=== PATIENT | female | born 1950 | race Caucasian/White ===

== ENCOUNTER → 2017-03-13 | Outpatient (CLI) | payer MEDICARE ==
[~2017-03-13] MED LIST: LEVOX PO
--- NOTE | 2017-03-13 10:47 | Diagnostic Imaging Report ---
INDICATION: Pain in right scapular region. Tingling in hands. Increasing in severity.. TECHNIQUE: AP, lateral, and odontoid views of the cervical spine.. CORRELATION STUDY: None. FINDINGS: There is some straightening of the normal cervical lordosis. There is 2 mm of anterolisthesis of C4 on C5. There is moderate asymmetric disc space narrowing at the C5-C6 and C6-C7 levels. Endplate osteophytes are noted, particularly anteriorly as well as at the anterior/inferior C3 and C4 levels. The vertebral soft tissues are unremarkable. The odontoid is largely obscured. The lateral masses of C1 and C2 are grossly unremarkable. There is some calcification of the soft tissues of the neck on the left which could be reflective of carotid artery calcification. Mildly prominent C7 cervical ribs, left slightly greater than right, are present. IMPRESSION: No definite evidence for acute bony abnormality. There is multilevel cervical spondylosis, most pronounced at the C5-C6 and C6-C7 levels, with endplate osteophyte formation. Given the reactive changes, this could predispose to potential foraminal or spinal canal narrowing. Given symptoms, if further assessment is desired, an MRI would be recommended. Dictated by: Dictated on workstation # [id number]
== END ==
LOC: RAD 06:56
PROVIDERS: ATTEND Family Medicine
DX: M54.2 Cervicalgia (principal); R29.898 Other symptoms and signs involving the musculoskeletal system; M47.892 Other spondylosis, cervical region
CPT/HCPCS: 72040

== ENCOUNTER 2018-10-21 06:40 | Outpatient (CLI) | payer MEDICARE ==
[~2018-10-21] VITALS: Ht 165.1 cm; Wt 81.6 kg
[2018-10-21] MEDS ORDERED: CETI10TA17 PO (13:52)
[2018-10-21] MEDS ORDERED: VITA-189 PO (13:52)
[2018-10-21] MEDS ORDERED: ATOR10TA66 PO (13:52)
[2018-10-21] MEDS ORDERED: OMEG100032 PO (13:52)
[2018-10-21] MEDS ORDERED: VIT1CAPS9 PO (13:52)
[2018-10-21] MEDS ORDERED: NAPR500T8 PO (13:52)
[2018-10-21] MEDS ORDERED: LEVO100T7 PO (13:52)
== END 2018-10-21 14:41 | disposition home or self-care (01) ==
LOC: PREOP 06:40
PROVIDERS: ATTEND Specialist
DX: Z01.818 Encounter for other preprocedural examination (principal)

== ENCOUNTER 2018-10-24 08:38 | Day surgery (SDC) | payer BC, MEDICARE ==
[~2018-10-24] VITALS: Ht 165.1 cm; Wt 81.6 kg
[~2018-10-24 08:38] MED LIST changes: +ATOR10TA66 PO; +CETI10TA17 PO; +LEVO100T7 PO; +NAPR500T8 PO; +OMEG100032 PO; +VIT1CAPS9 PO; +VITA-189 PO
--- OUTSIDE RECORDS SUMMARY | 2018-10-24 08:42 | XMS REPORT | Continuity of Care Document ---
Author Author [facility] Organization [facility] Address Unknown Phone Unavailable Allergies Active Description Code Type Severity Reaction Onset Reported/Identified Relationship to Patient Clinical Status Yes No Known Drug Allergies [id number] Drug Allergy Unknown N/A 07/11/2012 Yes erythromycin base [id number] Drug Allergy Unknown N/A 10/21/2018 Medications There is no data. Problems Date Dx Coded Attending Type Code Diagnosis Diagnosed By 02/14/2006 Ot 307.81 02/14/2006 Ot 346.90 02/14/2006 Ot V57.1 07/11/2012 Ot V76.51 SCREEN MAL NEOP-COLON 12/01/2014 RYLAN POE MD Ot V76.12 06/24/2015 RYLAN POE MD Ot 244.9 06/24/2015 JACKY LOUIS BREAD OVEN OPERATOR Ot 241.0 06/24/2015 RYLAN POE MD Ot V76.12 06/30/2015 JACKY LOUIS BREAD OVEN OPERATOR Ot 241.0 06/30/2015 JACKY LOUIS BREAD OVEN OPERATOR Ot 244.9 07/14/2015 JACKY LOUIS BREAD OVEN OPERATOR Ot 241.0 07/14/2015 JACKY LOUIS BREAD OVEN OPERATOR Ot 244.9 11/22/2015 ADRIANE ALY MD Ot S01.81XA LACERATION W/O FOREIGN BODY OF OTH PART 11/22/2015 ADRIANE ALY MD Ot W22.8XXA STRIKING AGAINST OR STRUCK BY OTHER OBJE 11/22/2015 ADRIANE ALY MD Ot Y92.[address] TO SINGLE-FAMILY (PRIVA 11/22/2015 ADRIANE ALY MD Ot Y99.8 OTHER EXTERNAL CAUSE STATUS 11/22/2015 ADRIANE ALY MD Ot Z23 ENCOUNTER FOR IMMUNIZATION 11/27/2015 RYLAN POE MD Ot 244.9 11/27/2015 JACKY LOUISP Ot 241.0 11/27/2015 MACARIO GARCÍA, RYLAN Sandy Ot V76.12 11/27/2015 JACKY LOUIS BREAD OVEN OPERATOR Ot 241.0 11/27/2015 JACKY LOUIS BREAD OVEN OPERATOR Ot 244.9 02/23/2016 RYLAN POE MD Ot 244.9 HYPOTHYROIDISM NOS 02/23/2016 JACKY LOUIS BREAD OVEN OPERATOR Ot 241.0 NONTOX UNINODULAR GOITER 02/23/2016 MACARIO GARCÍA, RYLAN A Ot V76.12 OTH SCREEN MAMMO-MALIGN NEOPLASM OF BETZY 02/23/2016 JACKY LOUIS BREAD OVEN OPERATOR Ot 241.0 NONTOX UNINODULAR GOITER 02/23/2016 JACKY LOUIS BREAD OVEN OPERATOR Ot 244.9 HYPOTHYROIDISM NOS 02/23/2016 LEYDA MANNING ACCOUNTING LECTURER Ot M25.561 PAIN IN RIGHT KNEE 02/23/2016 LEYDA MANNING ACCOUNTING LECTURER Ot M25.561 PAIN IN RIGHT KNEE 02/24/2016 LEYDA MANNING ACCOUNTING LECTURER Ot M25.561 PAIN IN RIGHT KNEE 03/06/2016 Ot V76.12 03/06/2016 Ot V72.84 EXAM PRE- OPERATIVE NOS 03/06/2016 MACARIO GARCÍA, RYLAN Sandy Ot 244.9 HYPOTHYROIDISM NOS 03/06/2016 JACKY LOUIS BREAD OVEN OPERATOR Ot 241.0 NONTOX UNINODULAR GOITER 03/06/2016 MACARIO GARCÍA, RYLAN A Ot V76.12 OTH SCREEN MAMMO-MALIGN NEOPLASM OF BETZY 03/06/2016 JACKY LOUIS BREAD OVEN OPERATOR Ot 241.0 NONTOX UNINODULAR GOITER 03/06/2016 JACKY LOUIS BREAD OVEN OPERATOR Ot 244.9 HYPOTHYROIDISM NOS 03/06/2016 LEYDA MANNING ACCOUNTING LECTURER Ot M25.561 PAIN IN RIGHT KNEE 03/09/2016 LEYDA MANNING ACCOUNTING LECTURER Ot Z12.31 ENCNTR SCREEN MAMMOGRAM FOR MALIGNANT NE 03/10/2016 LEYDA MANNING ACCOUNTING LECTURER Ot Z12.31 ENCNTR SCREEN MAMMOGRAM FOR MALIGNANT NE 03/14/2016 LEYDA MANNING ACCOUNTING LECTURER Ot Z12.31 ENCNTR SCREEN MAMMOGRAM FOR MALIGNANT NE 03/27/2016 LEYDA MANNING ACCOUNTING LECTURER Ot M25.561 PAIN IN RIGHT KNEE 03/31/2016 LEYDA MANNING ACCOUNTING LECTURER Ot Z12.31 ENCNTR SCREEN MAMMOGRAM FOR MALIGNANT NE 03/13/2017 Ot V76.12 OTH SCREEN MAMMO-MALIGN NEOPLASM OF BETZY 03/13/2017 Ot V72.84 EXAM PRE- OPERATIVE NOS 03/13/2017 MACARIO GARCÍA, RYLAN Sandy Ot V76.12 OTH SCREEN MAMMO-MALIGN NEOPLASM OF BETZY 03/13/2017 RYLAN POE MD Ot 244.9 HYPOTHYROIDISM NOS 03/13/2017 JACKY LOUIS BREAD OVEN OPERATOR Ot 241.0 NONTOX UNINODULAR GOITER 03/13/2017 RYLAN POE MD Ot V76.12 OTH SCREEN MAMMO-MALIGN NEOPLASM OF BETZY 03/13/2017 JACKY LOUIS BREAD OVEN OPERATOR Ot 241.0 NONTOX UNINODULAR GOITER 03/13/2017 JACKY LOUIS BREAD OVEN OPERATOR Ot 244.9 HYPOTHYROIDISM NOS 03/13/2017 LEYDA MANNING ACCOUNTING LECTURER Ot Z12.31 ENCNTR SCREEN MAMMOGRAM FOR MALIGNANT NE 03/13/2017 LEYDA MANNING ACCOUNTING LECTURER Ot M25.561 PAIN IN RIGHT KNEE 03/13/2017 Ot V76.12 OTH SCREEN MAMMO-MALIGN NEOPLASM OF BETZY 03/13/2017 Ot V72.84 EXAM PRE- OPERATIVE NOS 03/13/2017 RYLAN POE MD Ot V76.12 OTH SCREEN MAMMO-MALIGN NEOPLASM OF BETZY 03/15/2017 RYLAN POE MD Ot M47.892 OTHER SPONDYLOSIS, CERVICAL REGION 03/15/2017 RYLAN POE MD Ot M54.2 CERVICALGIA 03/15/2017 RYLAN POE MD Ot R29.898 OTH SYMPTOMS AND SIGNS INVOLVING THE MUS 03/28/2017 RYLAN POE MD Ot M47.892 OTHER SPONDYLOSIS, CERVICAL REGION 03/28/2017 RYLAN POE MD Ot M54.2 CERVICALGIA 03/28/2017 RYLAN POE MD Ot R29.898 OTH SYMPTOMS AND SIGNS INVOLVING THE MUS 08/03/2017 Ot V76.12 OTH SCREEN MAMMO-MALIGN NEOPLASM OF BETZY 08/03/2017 Ot V72.84 EXAM PRE- OPERATIVE NOS 08/03/2017 RYLAN POE MD Ot V76.12 OTH SCREEN MAMMO-MALIGN NEOPLASM OF BETZY 08/03/2017 MACARIO GARCÍA, RYLAN Sandy Ot 244.9 HYPOTHYROIDISM NOS 08/03/2017 JACKY LOUIS BREAD OVEN OPERATOR Ot 241.0 NONTOX UNINODULAR GOITER 08/03/2017 MACARIO GARCÍA, RYLAN Sandy Ot V76.12 OTH SCREEN MAMMO-MALIGN NEOPLASM OF BETZY 08/03/2017 JACKY LOUIS BREAD OVEN OPERATOR Ot 241.0 NONTOX UNINODULAR GOITER 08/03/2017 JACKY LOUIS BREAD OVEN OPERATOR Ot 244.9 HYPOTHYROIDISM NOS 08/03/2017 LEYDA MANNING ACCOUNTING LECTURER Ot Z12.31 ENCNTR SCREEN MAMMOGRAM FOR MALIGNANT NE 08/03/2017 LEYDA MANNING ACCOUNTING LECTURER Ot M25.561 PAIN IN RIGHT KNEE 08/03/2017 MACARIO GARCÍA, RYLAN Sandy Ot M47.892 OTHER SPONDYLOSIS, CERVICAL REGION 08/03/2017 RYLAN POE MD Ot M54.2 CERVICALGIA 08/03/2017 MACARIO GARCÍA, RYLAN Sandy Ot R29.898 OT SYMPTOMS AND SIGNS INVOLVING THE MUS 09/02/2017 ARLETH BEAL Ot E78.2 MIXED HYPERLIPIDEMIA 09/02/2017 ARLETH BEAL Ot 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 09/02/2017 ARLETH BEAL Ot R06.02 SHORTNESS OF BREATH 09/02/2017 ARLETH BEAL Ot Z83.3 FAMILY HISTORY OF DIABETES MELLITUS 09/23/2017 ARLETH BEAL Ot E78.2 MIXED HYPERLIPIDEMIA 09/23/2017 ARLETH BEAL Ot 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 09/23/2017 ARLETH BEAL Ot R06.02 SHORTNESS OF BREATH 09/23/2017 ARLETH BEAL Ot Z83.3 FAMILY HISTORY OF DIABETES MELLITUS 10/21/2018 FORREST UNGER MD Ot Z01.818 ENCOUNTER FOR OTHER PREPROCEDURAL EXAMIN 10/22/2018 FORREST UNGER MD Ot Z01.818 ENCOUNTER FOR OTHER PREPROCEDURAL EXAMIN 10/24/2018 RYLAN POE MD Ot 244.9 HYPOTHYROIDISM NOS 10/24/2018 JACKY LOUIS BREAD OVEN OPERATOR Ot 241.0 NONTOX UNINODULAR GOITER 10/24/2018 MACARIO GARCÍA, RYLAN Sandy Ot V76.12 OTH SCREEN MAMMO-MALIGN NEOPLASM OF BETZY 10/24/2018 JACKY LOUIS BREAD OVEN OPERATOR Ot 241.0 NONTOX UNINODULAR GOITER 10/24/2018 JACKY LOUIS BREAD OVEN OPERATOR Ot 244.9 HYPOTHYROIDISM NOS 10/24/2018 LEYDA MANNING ACCOUNTING LECTURER Ot Z12.31 ENCNTR SCREEN MAMMOGRAM FOR MALIGNANT NE 10/24/2018 LEYDA MANNING ACCOUNTING LECTURER Ot M25.561 PAIN IN RIGHT KNEE 10/24/2018 MACARIO GARCÍA, RYLAN Sandy Ot M47.892 OTHER SPONDYLOSIS, CERVICAL REGION 10/24/2018 MACARIO GARCÍA, RYLAN Sandy Ot M54.2 CERVICALGIA 10/24/2018 MACARIO GARCÍA, RYLAN Sandy Ot R29.898 OTH SYMPTOMS AND SIGNS INVOLVING THE MUS 10/24/2018 ARLETH BEAL Ot E78.2 MIXED HYPERLIPIDEMIA 10/24/2018 ARLETH BEAL Ot 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 Results There is no data. Encounters ACCT No. Visit Date/Time Discharge Status Pt. Type Provider Facility Loc./Unit Complaint [id number] 10/21/2018 06:40:00 10/21/2018 14:41:00 DIS Outpatient FORREST UNGER MD [facility] PREOP CATARACT LEFT EYE [id number] 08/09/2017 09:30:00 08/09/2017 23:59:59 CLS Outpatient ARLETH BEAL [facility] CARD I65.23 [id number] 03/13/2017 06:56:00 03/13/2017 23:59:59 CLS Outpatient RYLAN POE MD [facility] RAD NECK PAIN [id number] 03/08/2016 10:40:00 03/08/2016 23:59:59 CLS Outpatient LEYDA MANNING ACCOUNTING LECTURER [facility] RAD SCREENING [id number] 02/23/2016 12:32:00 02/23/2016 23:59:59 CLS Outpatient LEYDA MANNING ACCOUNTING LECTURER [facility] RAD RIGHT KNEE PAIN [id number] 11/22/2015 11:10:00 11/22/2015 13:23:00 DIS Emergency ADRIANE ALY MD [facility] ER HEAD LAC [id number] 06/24/2015 13:01:00 06/24/2015 23:59:59 CLS Outpatient JACKY LOUIS [facility] RAD HYPOTHYROIDISM [id number] 11/04/2014 15:26:00 11/04/2014 23:59:59 CLS Outpatient RYLAN POE MD [facility] RAD SCREENING [id number] 06/15/2014 10:53:00 06/15/2014 23:59:59 CLS Outpatient JACKY LOUIS [facility] CARD THYROID NODULES [id number] 05/05/2014 10:30:00 05/05/2014 23:59:59 CLS Outpatient RYLAN POE MD [facility] RAD HYPOTHYROIDISM [id number] 08/04/2013 15:13:00 08/04/2013 23:59:59 CLS Outpatient RYLAN POE MD [facility] RAD SCREENING [id number] 10/24/2018 08:38:00 ACT Outpatient FORREST UNGER MD [facility] SDC LEFT EYE CATARACT [id number] 10/21/2018 15:23:00 HALLIE Han MD [facility] RAD SCREENING [id number] 03/06/2016 13:49:00 Document Registration [id number] 07/11/2012 08:33:00 Document Registration [id number] 07/10/2012 07:17:00 Document Registration [id number] 05/08/2012 07:25:00 Document Registration [id number] 01/07/2009 10:18:00 Document Registration [id number] 01/29/2006 15:04:00 Document Registration [email or web address] 06/24/2015 13:01:28 ACT Document Registration 0000 04/23/2017 14:22:17 04/23/2017 23:59:59 [facility] Outpatient Rylan Poe
[2018-10-24] MEDS: TETRACAINE 0.5% OPHTH SOLN 4 ML BTL (SINGLE DOSE ONLY) OU PRN ×4 (08:56→09:11)
[2018-10-24] MEDS ORDERED: TIMOLOL MALEATE 0.5% 5 ML (TIMOPTIC) BTL OU PRN (09:00)
[2018-10-24] MEDS ORDERED: MOXIFLOXACIN OPHTH SOLN 5 MG/ML 0.3 ML SYRINGE OP ONE (09:00)
[2018-10-24] MEDS ORDERED: LIDOCAINE PF 1% 2 ML AMP IR PRN (09:00)
[2018-10-24] MEDS ORDERED: POVIDONE (BETADINE) OPHTH SOLN 5% 30 ML OP ONE (09:00)
[2018-10-24] MEDS: CYCLOPENTOLATE 1% (CYCLOGYL) 2 ML DROPS OP SCH ×3 (09:01→09:11)
[2018-10-24] MEDS: PHENYLEPHRINE 10% OPHTH (NEO-SYN) 5 ML BTL OU SCH ×3 (09:01→09:11)
[2018-10-24 09:09] VITALS: BP 135/65
--- NOTE | 2018-10-24 09:35 | Ophthalmologist Pre-Op Note ---
Pre-Operative Progress Note H&P Reviewed The H&P was reviewed, patient examined and no changes noted. Date H&P Reviewed: Oct 24, 2018 Time H&P Reviewed: 09:35 Pre-Op Dx Cataract, Left Eye FORREST UNGER MD Oct 24, 2018 09:35
[2018-10-24] MEDS ORDERED: MIDAZOLAM 2 MG/2 ML (VERSED) VIAL ONE (09:39)
--- NOTE | 2018-10-24 10:10 | Ophthalmology Operative Report ---
Cataract removal/placement IOL PREOPERATIVE DIAGNOSIS: Cataract Left Eye POSTOPERATIVE DIAGNOSIS: Cataract Left Eye PROCEDURE: Cataract removal and placement of posterior chamber implant, left eye SURGEON: Collin Unger ANESTHESIA: Topical with sedation COMPLICATIONS: None ESTIMATED BLOOD LOSS: Minimal DESCRIPTION OF PROCEDURE: After proper informed consent was obtained, the patient, a 68 female, was taken to the Operating Room and the left eye was anesthetized with tetracaine. The left eye was then prepped and draped in the usual manner. A wire lid speculum was placed. A paracentesis was made at the left hand position. Preservative free lidocaine was injected into the anterior chamber followed by viscoelastic. A clear corneal incision was made in the temporal position. A capsulorrhexis was preformed and the central nuclear and cortical material were removed. The posterior capsule was polished and an Kurt 18.0 AU00T0 was placed into the capsular bag. The residual viscoelastic was aspirated and balanced saline solution was injected into the anterior chamber. Moxifloxacin was injected into the anterior chamber. The wound was checked and found to be water tight. The patient tolerated the procedure well without complications. COLLIN UNGER MD Oct 24, 2018 10:10
[2018-10-24 10:20] VITALS: BP 120/70
[2018-10-24] MEDS ORDERED: acetaZOLAMIDE ER 500 MG CAP (DIAMOX SEQUELS) PO ONE (10:30)
--- NOTE | 2018-10-24 12:43 | Anesthesia-General Post-Op ---
MAC Patient Condition Mental Status/LOC: Same as Preop Cardiovascular: Satisfactory Nausea/Vomiting: Absent Respiratory: Satisfactory Pain: Controlled Complications: Absent Post Op Complications Complications None Follow Up Care/Instructions Patient Instructions None needed. Anesthesiology Discharge Order Discharge Order Patient is doing well, no complaints, stable vital signs, no apparent adverse anesthesia problems. No complications reported per nursing. FLORA HAHN CRNA Oct 24, 2018 12:43
== END 2018-10-24 10:20 | disposition home or self-care (01) ==
LOC: SDC 08:38
PROVIDERS: ATTEND Specialist
DX: H25.12 Age-related nuclear cataract, left eye (principal); E03.9 Hypothyroidism, unspecified; E78.00 Pure hypercholesterolemia, unspecified; Z79.899 Other long term (current) drug therapy

== ENCOUNTER 2018-11-04 06:21 | Outpatient (CLI) | payer BC, MEDICARE ==
[~2018-11-04] VITALS: Ht 165.1 cm; Wt 81.6 kg
== END 2018-11-04 15:11 | disposition home or self-care (01) ==
LOC: PREOP 06:21
PROVIDERS: ATTEND Specialist
DX: Z01.818 Encounter for other preprocedural examination (principal)

== ENCOUNTER 2018-11-07 07:48 | Day surgery (SDC) | payer BC, MEDICARE ==
[~2018-11-07] VITALS: Ht 165.1 cm; Wt 81.6 kg
[2018-11-07 07:52] VITALS: BP 127/64
--- OUTSIDE RECORDS SUMMARY | 2018-11-07 07:52 | XMS REPORT | Continuity of Care Document ---
Author Author [facility] Organization [facility] Address Unknown Phone Unavailable Allergies Active Description Code Type Severity Reaction Onset Reported/Identified Relationship to Patient Clinical Status Yes No Known Drug Allergies [id number] Drug Allergy Unknown N/A 07/11/2012 Yes erythromycin base [id number] Drug Allergy Unknown N/A 10/21/2018 Medications There is no data. Problems Date Dx Coded Attending Type Code Diagnosis Diagnosed By 02/14/2006 Ot 307.81 02/14/2006 Ot 346.90 02/14/2006 Ot V57.1 07/11/2012 Ot V76.51 SCREEN MAL NEOP-COLON 12/01/2014 RYLAN POE MD Ot V76.12 06/24/2015 RYLAN POE MD Ot 244.9 06/24/2015 JACKY LOUIS DIRECTOR MULTIMEDIA Ot 241.0 06/24/2015 RYLAN POE MD Ot V76.12 06/30/2015 JACKY LOUIS DIRECTOR MULTIMEDIA Ot 241.0 06/30/2015 JACKY LOUIS DIRECTOR MULTIMEDIA Ot 244.9 07/14/2015 JACKY LOUIS DIRECTOR MULTIMEDIA Ot 241.0 07/14/2015 JACKY LOUIS DIRECTOR MULTIMEDIA Ot 244.9 11/22/2015 ADRIANE ALY MD Ot [...] RYLAN Sandy Ot V76.12 11/27/2015 JACKY LOUIS DIRECTOR MULTIMEDIA Ot 241.0 11/27/2015 JACKY LOUIS DIRECTOR MULTIMEDIA Ot 244.9 02/23/2016 RYLAN POE MD Ot 244.9 HYPOTHYROIDISM NOS 02/23/2016 JACKY LOUIS DIRECTOR MULTIMEDIA Ot 241.0 NONTOX UNINODULAR GOITER 02/23/2016 MACARIO GARCÍA, RYLAN A Ot V76.12 OTH SCREEN MAMMO-MALIGN NEOPLASM OF BETZY 02/23/2016 JACKY LOUIS DIRECTOR MULTIMEDIA Ot 241.0 NONTOX UNINODULAR GOITER 02/23/2016 JACKY LOUIS DIRECTOR MULTIMEDIA Ot 244.9 HYPOTHYROIDISM NOS 02/23/2016 LEYDA MANNING DOCKING SAW OPERATOR Ot M25.561 PAIN IN RIGHT KNEE 02/23/2016 LEYDA MANNING DOCKING SAW OPERATOR Ot M25.561 PAIN IN RIGHT KNEE 02/24/2016 LEYDA MANNING DOCKING SAW OPERATOR Ot M25.561 PAIN IN RIGHT KNEE 03/06/2016 Ot V76.12 03/06/2016 Ot V72.84 EXAM PRE- OPERATIVE NOS 03/06/2016 MACARIO GARCÍA, RYLAN Sandy Ot 244.9 HYPOTHYROIDISM NOS 03/06/2016 JACKY LOUIS DIRECTOR MULTIMEDIA Ot 241.0 NONTOX UNINODULAR GOITER 03/06/2016 MACARIO GARCÍA, RYLAN A Ot V76.12 OTH SCREEN MAMMO-MALIGN NEOPLASM OF BETZY 03/06/2016 JACKY LOUIS DIRECTOR MULTIMEDIA Ot 241.0 NONTOX UNINODULAR GOITER 03/06/2016 JACKY LOUIS DIRECTOR MULTIMEDIA Ot 244.9 HYPOTHYROIDISM NOS 03/06/2016 LEYDA MANNING DOCKING SAW OPERATOR Ot M25.561 PAIN IN RIGHT KNEE 03/09/2016 LEYDA MANNING DOCKING SAW OPERATOR Ot Z12.31 ENCNTR SCREEN MAMMOGRAM FOR MALIGNANT NE 03/10/2016 LEYDA MANNING DOCKING SAW OPERATOR Ot Z12.31 ENCNTR SCREEN MAMMOGRAM FOR MALIGNANT NE 03/14/2016 LEYDA MANNING DOCKING SAW OPERATOR Ot Z12.31 ENCNTR SCREEN MAMMOGRAM FOR MALIGNANT NE 03/27/2016 LEYDA MANNING DOCKING SAW OPERATOR Ot M25.561 PAIN IN RIGHT KNEE 03/31/2016 LEYDA MANNING DOCKING SAW OPERATOR Ot Z12.31 ENCNTR SCREEN MAMMOGRAM FOR MALIGNANT NE 03/13/2017 Ot V76.12 OTH SCREEN MAMMO-MALIGN NEOPLASM OF BETZY 03/13/2017 Ot V72.84 EXAM PRE- OPERATIVE NOS 03/13/2017 MACARIO GARCÍA, RYLAN Sandy Ot V76.12 OTH SCREEN MAMMO-MALIGN NEOPLASM OF BETZY 03/13/2017 RYLAN POE MD Ot 244.9 HYPOTHYROIDISM NOS 03/13/2017 JACKY LOUIS DIRECTOR MULTIMEDIA Ot 241.0 NONTOX UNINODULAR GOITER 03/13/2017 RYLAN POE MD Ot V76.12 OTH SCREEN MAMMO-MALIGN NEOPLASM OF BETZY 03/13/2017 JACKY LOUIS DIRECTOR MULTIMEDIA Ot 241.0 NONTOX UNINODULAR GOITER 03/13/2017 JACKY LOUIS DIRECTOR MULTIMEDIA Ot 244.9 HYPOTHYROIDISM NOS 03/13/2017 LEYDA MANNING DOCKING SAW OPERATOR Ot Z12.31 ENCNTR SCREEN MAMMOGRAM FOR MALIGNANT NE 03/13/2017 LEYDA MANNING DOCKING SAW OPERATOR Ot M25.561 PAIN IN RIGHT KNEE 03/13/2017 [...] Ot 244.9 HYPOTHYROIDISM NOS 08/03/2017 JACKY LOUIS DIRECTOR MULTIMEDIA Ot 241.0 NONTOX UNINODULAR GOITER 08/03/2017 MACARIO GARCÍA, RYLAN Sandy Ot V76.12 OTH SCREEN MAMMO-MALIGN NEOPLASM OF BETZY 08/03/2017 JACKY LOUIS DIRECTOR MULTIMEDIA Ot 241.0 NONTOX UNINODULAR GOITER 08/03/2017 JACKY LOUIS DIRECTOR MULTIMEDIA Ot 244.9 HYPOTHYROIDISM NOS 08/03/2017 LEYDA MANNING DOCKING SAW OPERATOR Ot Z12.31 ENCNTR SCREEN MAMMOGRAM FOR MALIGNANT NE 08/03/2017 LEYDA MANNING DOCKING SAW OPERATOR Ot M25.561 PAIN IN RIGHT KNEE 08/03/2017 [...] Z01.818 ENCOUNTER FOR OTHER PREPROCEDURAL EXAMIN 10/24/2018 MACARIO MD, RYLAN A Ot 244.9 HYPOTHYROIDISM NOS 10/24/2018 JACKY LOUIS DIRECTOR MULTIMEDIA Ot 241.0 NONTOX UNINODULAR GOITER 10/24/2018 MACARIO GARCÍA, RYLAN Sandy Ot V76.12 OTH SCREEN MAMMO-MALIGN NEOPLASM OF BETZY 10/24/2018 JACKY LOUIS DIRECTOR MULTIMEDIA Ot 241.0 NONTOX UNINODULAR GOITER 10/24/2018 JACKY LOUIS DIRECTOR MULTIMEDIA Ot 244.9 HYPOTHYROIDISM NOS 10/24/2018 LEYDA MANNING DOCKING SAW OPERATOR Ot Z12.31 ENCNTR SCREEN MAMMOGRAM FOR MALIGNANT NE 10/24/2018 LEYDA MANNING DOCKING SAW OPERATOR Ot M25.561 PAIN IN RIGHT KNEE 10/24/2018 [...] Ot Z83.3 FAMILY HISTORY OF DIABETES MELLITUS 10/24/2018 FORREST UNGER MD Ot E03.9 HYPOTHYROIDISM, UNSPECIFIED 10/24/2018 FORREST UNGER MD Ot E78.00 PURE HYPERCHOLESTEROLEMIA, UNSPECIFIED 10/24/2018 FORREST UNGER MD Ot H25.12 AGE-RELATED NUCLEAR CATARACT, LEFT EYE 10/24/2018 FORREST UNGER MD Ot Z79.899 OTHER [facility] (CURRENT) DRUG THERAPY 10/29/2018 FORREST UNGER MD Ot E03.9 HYPOTHYROIDISM, UNSPECIFIED 10/29/2018 FORREST UNGER MD Ot E78.00 PURE HYPERCHOLESTEROLEMIA, UNSPECIFIED 10/29/2018 FORREST UNGER MD L Ot H25.12 AGE-RELATED NUCLEAR CATARACT, LEFT EYE 10/29/2018 FORREST UNGER MD Ot Z79.899 OTHER [facility] (CURRENT) DRUG THERAPY 10/29/2018 FORREST UNGER MD Ot E03.9 HYPOTHYROIDISM, UNSPECIFIED 10/29/2018 FORREST UNGER MD Ot E78.00 PURE HYPERCHOLESTEROLEMIA, UNSPECIFIED 10/29/2018 FORREST UNGER MD Ot H25.12 AGE-RELATED NUCLEAR CATARACT, LEFT EYE 10/29/2018 FORREST UNGER MD Ot Z79.899 OTHER SWIMMING POOL PLASTERER HELPER (CURRENT) DRUG THERAPY 11/05/2018 FORREST UNGER MD Ot Z01.818 ENCOUNTER FOR OTHER PREPROCEDURAL EXAMIN Procedures There is no data. Results There is no data. Encounters ACCT No. Visit Date/Time Discharge Status Pt. Type Provider Facility Loc./Unit Complaint [id number] 11/04/2018 06:21:00 11/04/2018 15:11:00 DIS Outpatient FORREST UNGER MD [facility] PREOP RIGHT CATARACT [id number] 10/24/2018 08:38:00 10/24/2018 10:20:00 DIS Outpatient FORREST UNGER MD [facility] SDC LEFT EYE CATARACT [id number] 10/21/2018 15:23:00 10/21/2018 23:59:59 CLS Preadmit HALLIE REESE MD [facility] RAD SCREENING [id number] 10/21/2018 06:40:00 10/21/2018 14:41:00 DIS Outpatient FORREST UNGER MD [facility] PREOP CATARACT LEFT EYE [id number] 08/09/2017 09:30:00 08/09/2017 23:59:59 CLS Outpatient ARLETH BEAL [facility] CARD I65.23 [id number] 03/13/2017 06:56:00 03/13/2017 23:59:59 CLS Outpatient RYLAN POE MD [facility] RAD NECK PAIN [id number] 03/08/2016 10:40:00 03/08/2016 23:59:59 CLS Outpatient LEYDA MANNING APRN [facility] RAD SCREENING [id number] 02/23/2016 12:32:00 02/23/2016 23:59:59 CLS Outpatient LEYDA MANNING APRN [facility] RAD RIGHT KNEE PAIN [id number] 11/22/2015 11:10:00 11/22/2015 13:23:00 DIS Emergency ADRIANE ALY MD [facility] ER HEAD LAC [id number] 06/24/2015 13:01:00 06/24/2015 23:59:59 CLS Outpatient JACKY LOUIS [facility] RAD HYPOTHYROIDISM [id number] 11/04/2014 15:26:00 11/04/2014 23:59:59 CLS Outpatient RYLAN POE MD [facility] RAD SCREENING [id number] 06/15/2014 10:53:00 06/15/2014 23:59:59 CLS Outpatient JACKY LOUIS [facility] CARD THYROID NODULES [id number] 05/05/2014 10:30:00 05/05/2014 23:59:59 CLS Outpatient RYLAN POE MD [facility] RAD HYPOTHYROIDISM [id number] 08/04/2013 15:13:00 08/04/2013 23:59:59 CLS Outpatient RYLAN POE MD [facility] RAD SCREENING [id number] 11/07/2018 07:48:00 ACT Outpatient FORREST UNGER MD [facility] SDC RIGHT CATARACT [id number] 03/06/2016 13:49:00 Document Registration [id number] 07/11/2012 08:33:00 Document Registration [id number] 07/10/2012 07:17:00 Document Registration [id number] 05/08/2012 07:25:00 Document Registration [id number] 01/07/2009 10:18:00 Document Registration [id number] 01/29/2006 15:04:00 Document Registration [email or web address] 06/24/2015 13:01:28 ACT Document Registration 0000 04/23/2017 14:22:17 04/23/2017 23:59:59 CLS Outpatient Rylan Poe
[2018-11-07] MEDS ORDERED: LIDOCAINE PF 1% 2 ML AMP IR PRN (08:00)
[2018-11-07] MEDS ORDERED: POVIDONE (BETADINE) OPHTH SOLN 5% 30 ML OP ONE (08:00)
[2018-11-07] MEDS ORDERED: TIMOLOL MALEATE 0.5% 5 ML (TIMOPTIC) BTL OU PRN (08:00)
[2018-11-07] MEDS ORDERED: MOXIFLOXACIN OPHTH SOLN 5 MG/ML 0.3 ML SYRINGE OP ONE (08:00)
[2018-11-07] MEDS: TETRACAINE 0.5% OPHTH SOLN 4 ML BTL (SINGLE DOSE ONLY) OU PRN ×4 (08:06→08:15)
[2018-11-07] MEDS: CYCLOPENTOLATE 1% (CYCLOGYL) 2 ML DROPS OP SCH ×3 (08:09→08:15)
[2018-11-07] MEDS: PHENYLEPHRINE 10% OPHTH (NEO-SYN) 5 ML BTL OU SCH ×3 (08:09→08:15)
[2018-11-07] MEDS ORDERED: MIDAZOLAM 2 MG/2 ML (VERSED) VIAL ONE (08:23)
--- NOTE | 2018-11-07 08:44 | Ophthalmologist Pre-Op Note ---
Pre-Operative Progress Note H&P Reviewed The H&P was reviewed, patient examined and no changes noted. Date H&P Reviewed: Nov 07, 2018 Time H&P Reviewed: 08:44 Pre-Op Dx Cataract, Right Eye FORREST UNGER MD Nov 07, 2018 08:44
--- NOTE | 2018-11-07 09:07 | Ophthalmology Operative Report ---
Cataract removal/placement IOL PREOPERATIVE DIAGNOSIS: Cataract Right Eye POSTOPERATIVE DIAGNOSIS: Cataract Right Eye PROCEDURE: Cataract removal and placement of posterior chamber implant, right eye SURGEON: Collin Unger ANESTHESIA: Topical with sedation COMPLICATIONS: None ESTIMATED BLOOD LOSS: Minimal DESCRIPTION OF PROCEDURE: After proper informed consent was obtained, the patient, a 68 female, was taken to the Operating Room and the right eye was anesthetized with tetracaine. The right eye was then prepped and draped in the usual manner. A wire lid speculum was placed. A paracentesis was made at the left hand position. Preservative free lidocaine was injected into the anterior chamber followed by viscoelastic. A clear corneal incision was made in the temporal position. A capsulorrhexis was preformed and the central nuclear and cortical material were removed. The posterior capsule was polished and Kurt 18.5 AU00T0 IOL was placed into the capsular bag. The residual viscoelastic was aspirated and balanced saline solution was injected into the anterior chamber. Moxifloxacin was injected into the anterior chamber. The wound was checked and found to be water tight. The patient tolerated the procedure well without complications. COLLIN UNGER MD Nov 07, 2018 09:07
[2018-11-07 09:20] VITALS: BP 115/82
[2018-11-07] MEDS ORDERED: acetaZOLAMIDE ER 500 MG CAP (DIAMOX SEQUELS) PO ONE (09:30)
--- NOTE | 2018-11-07 12:51 | Anesthesia-General Post-Op ---
MAC Patient Condition Mental Status/LOC: Same as Preop Cardiovascular: Satisfactory Nausea/Vomiting: Absent Respiratory: Satisfactory Pain: Controlled Complications: Absent Post Op Complications Complications None Follow Up Care/Instructions Patient Instructions None needed. Anesthesiology Discharge Order Discharge Order Patient is doing well, no complaints, stable vital signs, no apparent adverse anesthesia problems. No complications reported per nursing. LYLA HESTER CRNA Nov 07, 2018 12:51
== END 2018-11-07 09:20 | disposition home or self-care (01) ==
LOC: SDC 07:48
PROVIDERS: ATTEND Specialist
DX: H25.11 Age-related nuclear cataract, right eye (principal); E03.9 Hypothyroidism, unspecified; E78.00 Pure hypercholesterolemia, unspecified; Z79.899 Other long term (current) drug therapy

== ENCOUNTER → 2019-12-15 | Outpatient (CLI) | payer BC, MEDICARE ==
[~2019-12-15] MED LIST changes: +OCUVITE SOFTGE1 EACH PO; -VIT1CAPS9 PO
--- NOTE | 2019-12-15 12:24 | Diagnostic Imaging Report ---
INDICATION: Postmenopausal state. COMPARISON: November 25, 2006 FINDINGS: AP Spine L1-L4: [BMD (g/cm2): 1.130] [T-Score: -0.6] [Z-Score: 0.5] [BMD Previous: 10.27] [BMD % Change: 10.0] LT Hip Neck: [BMD (g/cm2): 0.904] [T-Score: -1.0] [Z-Score: 0.4] LT Hip Total: [BMD (g/cm2):0.964] [T-Score:-0.3] [Z-Score: 0.7] [BMD Previous: 0.932] [BMD % Change: 3.4] RT Hip Neck: [BMD (g/cm2):0.863] [T-Score:-1.3] [Z-Score:0.1] RT Hip Total: [BMD (g/cm2):0.880] [T-score:-1.0] [Z-Score:0.1] [BMD Previous:0.919] [BMD % Change:-4.2] *Indicates significant change from prior examination based on 95% confidence level. World Health Organization criteria for BMD interpretation classify patients as Normal (T-score at or above -1.0), Osteopenic (T-score between -1.0 and -2.5) or Osteoporotic (T-score at or below -2.5). LIMITATIONS AND MODIFICATION: None. FRACTURE RISK (FRAX SCORE): The ten year probability of (%): Major Osteoporotic Fracture: [12] Hip Fracture: [2.5] IMPRESSION: 1. Osteopenia (Low bone mass). 2. No significant change in bone mineral density since prior examination. 3. See below National Osteoporosis Foundation guidelines on when to potentially initiate pharmacologic therapy. Based on the National Osteoporosis Foundation Guidelines, pharmacologic treatment should be initiated in any of the following, unless clinical conditions suggest otherwise: * Any patient with prior fragility fracture of the hip or vertebrae. A spine fracture indicates 5X risk for subsequent spine fracture and 2X risk for subsequent hip fracture. * Osteoporosis (T-score <-2.5). * Postmenopausal women and men age 50 and older with low bone mass/osteopenia (T-score between -1.0 and -2.5) by DXA and 10-year major osteoporotic fracture greater than 20% or a 10-year probability of hip fracture greater than 3%. These fracture risks are supplied above in the FRAX score, if applicable. * Clinician judgement and/or patient preferences may indicate treatment for people with 10-year fracture probabilities above or below these levels. Dictated by: Dictated on workstation # [id number]
--- NOTE | 2019-12-15 13:03 | Diagnostic Imaging Report ---
INDICATION: Routine screening. COMPARISON: Comparison is made with prior mammograms from 03/08/2016 and 11/04/2014. 2-D and 3-D bilateral screening mammography was performed. The current study was also evaluated with a Computer Aided Detection (CAD) system. 3-D tomosynthesis was also performed and reviewed. FINDINGS: Scattered fibroglandular densities are identified bilaterally. There are benign parenchymal and vascular calcifications bilaterally. Fibronodular parenchymal pattern is seen bilaterally. No spiculated mass or malignant-appearing microcalcifications are identified. The axillae are unremarkable. IMPRESSION: No mammographic features suspicious for malignancy are identified. ACR BI-RADS Category 2: Benign findings. Result letter will be mailed to the patient. Note: At least 10% of breast cancer is not imaged by mammography. Dictated by: Dictated on workstation # [id number]
== END ==
LOC: RAD 10:13
PROVIDERS: ATTEND Family Medicine
DX: Z12.31 Encounter for screening mammogram for malignant neoplasm of breast (principal); M85.88 Other specified disorders of bone density and structure, other site; Z78.0 Asymptomatic menopausal state
CPT/HCPCS: 77067; 77080

== ENCOUNTER → 2020-09-22 | Outpatient (CLI) | payer BC, MEDICARE | LOC: LABNPT 08:44 | PROVIDERS: ATTEND Family Medicine | DX: Z20.828 Contact with and (suspected) exposure to other viral communicable diseases (principal) | CPT/HCPCS: 87635 ==

== ENCOUNTER → 2020-12-20 | Outpatient (CLI) | payer BC, MEDICARE ==
--- NOTE | 2020-12-20 12:43 | Diagnostic Imaging Report ---
INDICATION: Routine screening. Comparison is made with prior mammogram 12/15/2019 and 03/08/2016. 2-D and 3-D bilateral screening mammography was performed with CAD. Both breasts are heterogeneously dense, limiting the sensitivity of mammography. Fibronodular parenchymal pattern is again noted. The parenchymal pattern appears stable. There are benign parenchymal and vascular calcifications bilaterally. No spiculated mass or malignant appearing microcalcifications are seen. Axillae are unremarkable. IMPRESSION: BI-RADS Category 2 No mammographic features suspicious for malignancy are identified. ACR BI-RADS Category 2: Benign findings. Result letter will be mailed to the patient. Note: At least 10% of breast cancer is not imaged by mammography. Dictated by: Dictated on workstation # [id number]
== END ==
LOC: RAD 09:13
PROVIDERS: ATTEND Family Medicine
DX: Z12.31 Encounter for screening mammogram for malignant neoplasm of breast (principal)
CPT/HCPCS: 77063; 77067

== ENCOUNTER → 2022-01-02 | Outpatient (CLI) | payer BC, MEDICARE ==
--- NOTE | 2022-01-02 15:29 | Diagnostic Imaging Report ---
INDICATION: Routine screening. COMPARISON: 12/20/2020 and 12/15/2019. TECHNIQUE: 2D and 3D bilateral screening mammography was performed with CAD. FINDINGS: Scattered fibroglandular densities are identified bilaterally. The fibronodular parenchymal pattern appears stable. There are scattered benign parenchymal and vascular calcifications bilaterally. No dominant mass or malignant-appearing microcalcifications are seen. The axillae are unremarkable. IMPRESSION: No mammographic features suspicious for malignancy are identified. ACR BI-RADS Category 2: Benign findings. Result letter will be mailed to the patient. Note: At least 10% of breast cancer is not imaged by mammography. Dictated by: Dictated on workstation # [id number]
--- NOTE | 2022-01-02 18:04 | Diagnostic Imaging Report ---
INDICATION: 71-year-old female, postmenopausal. Screening for osteoporosis. COMPARISON: December 15, 2019. FINDINGS: AP Spine L1-L4: [BMD (g/cm2): 1.113] [T-Score: -0.7] [Z-Score: 0.4] [BMD Previous: 1.130] [BMD % Change: -1.5] LT Hip Neck: [BMD (g/cm2): 0.858] [T-Score: -1.3] [Z-Score: 0.1] LT Hip Total: [BMD (g/cm2):0.973] [T-Score:-0.3] [Z-Score: 0.9] [BMD Previous: 0.964] [BMD % Change: 0.9] RT Hip Neck: [BMD (g/cm2):0.856] [T-Score:-1.3] [Z-Score:0.1] RT Hip Total: [BMD (g/cm2):0.930] [T-score:-0.6] [Z-Score:0.6] [BMD Previous:0.880] [BMD % Change:5.7] *Indicates significant change from prior examination based on 95% confidence level. World Health Organization criteria for BMD interpretation classify patients as Normal (T-score at or above -1.0), Osteopenic (T-score between -1.0 and -2.5) or Osteoporotic (T-score at or below -2.5). LIMITATIONS AND MODIFICATION: None. FRACTURE RISK (FRAX SCORE): The ten year probability of (%): Major Osteoporotic Fracture: [9.8] Hip Fracture: [1.5] IMPRESSION: 1. Osteopenia (Low bone mass). 2. No significant change in bone mineral density since prior examination. 3. See below National Osteoporosis Foundation guidelines on when to potentially initiate pharmacologic therapy. Based on the National Osteoporosis Foundation Guidelines, pharmacologic treatment should be initiated in any of the following, unless clinical conditions suggest otherwise: * Any patient with prior fragility fracture of the hip or vertebrae. A spine fracture indicates 5X risk for subsequent spine fracture and 2X risk for subsequent hip fracture. * Osteoporosis (T-score <-2.5). * Postmenopausal women and men age 50 and older with low bone mass/osteopenia (T-score between -1.0 and -2.5) by DXA and 10-year major osteoporotic fracture greater than 20% or a 10-year probability of hip fracture greater than 3%. These fracture risks are supplied above in the FRAX score, if applicable. * Clinician judgement and/or patient preferences may indicate treatment for people with 10-year fracture probabilities above or below these levels. Dictated by: Dictated on workstation # [id number]
== END ==
LOC: RAD 13:30
PROVIDERS: ATTEND Family Medicine
DX: Z12.31 Encounter for screening mammogram for malignant neoplasm of breast (principal); Z13.820 Encounter for screening for osteoporosis; M81.0 Age-related osteoporosis without current pathological fracture; M85.80 Other specified disorders of bone density and structure, unspecified site; Z78.0 Asymptomatic menopausal state
CPT/HCPCS: 77063; 77067; 77080